=== PATIENT | female | born 1965 | race Caucasian/White ===

== ENCOUNTER 2017-04-08 18:26 | Emergency (ER) | payer MEDICAID, OTHER ==
[2017-04-08] MEDS: IBUPROFEN 600 MG TAB PO (22:49)
[2017-04-08] MEDS: ACETAMINOPHEN 325 MG TAB PO (22:49)
[2017-04-08] MEDS: ALBUTEROL 0.5% (NEB) 2.5 MG/0.5 ML AMP INH (23:05)
[2017-04-08] MEDS: IPRATROPIUM (NEB) 0.5 MG/2.5 ML AMP NEB (23:05)
== END 2017-04-09 01:06 | disposition home or self-care (01) ==
LOC: FTE 04-09 01:06
DX: J20.9 Acute bronchitis, unspecified (principal)
CPT/HCPCS: 71045; 87400; 94644; 99284-25

== ENCOUNTER 2017-04-11 06:05 | Emergency (ER) | payer MEDICAID ==
[2017-04-11] MEDS: predniSONE 20 MG TAB PO (06:58)
[2017-04-11] MEDS: ALBUTEROL 0.5% (NEB) 2.5 MG/0.5 ML AMP INH (07:28)
[2017-04-11] MEDS: IPRATROPIUM (NEB) 0.5 MG/2.5 ML AMP NEB (07:28)
[2017-04-11 08:45] LABS: ADD MAN DIFF? NO
[2017-04-11 08:51] LABS: BASOPHILS % 0.5 % (0.0-2.0); EOSINOPHILS # 0.1 10^3/ul (0.0-0.5); EOSINOPHILS % 1.4 % (0.0-7.0); HEMATOCRIT 41.5 % (37.0-47.0); HEMOGLOBIN 13.7 g/dl (12.0-16.0); LYMPHOCYTES # 2.4 10^3/ul (0.8-2.9); LYMPHOCYTES % 41.2 % (15.0-51.0); MEAN CORPUSCULAR VOLUME 87.7 fl (82.0-101.0); MEAN PLATELET VOLUME 12.1 fl (7.4-10.4); MONOCYTE # 0.4 10^3/ul (0.3-0.9); MONOCYTES % 7.1 % (0.0-11.0); NEUTROPHIL # 2.9 10^3/ul (1.6-7.5); NEUTROPHILS % 49.5 % (39.0-77.0); PLATELET COUNT 119 10^3/UL (140-415); RED BLOOD COUNT 4.73 10^6/ul (4.20-5.40); RED CELL DISTRIBUTION WIDTH 12.5 % (11.5-14.5)
[2017-04-11 08:51] LABS: WHITE BLOOD COUNT 5.9 10^3/ul (4.8-10.8)
[2017-04-11 09:07] LABS: ANION GAP 14 (8-16); BLOOD UREA NITROGEN 14 mg/dl (7-20); CALCIUM 8.8 mg/dl (8.4-10.2); CARBON DIOXIDE 30 mmol/L (21-31); CHLORIDE 100 mmol/L (97-110); GLUCOSE 292 mg/dl (70-220); POTASSIUM 3.6 mmol/L (3.5-5.1); SODIUM 140 mmol/L (135-144)
[2017-04-11 09:09] LABS: INR 0.86; PROTIME 11.8 Sec (11.9-14.9); PT RATIO 0.9
[2017-04-11 09:10] LABS: PARTIAL THROMBOPLASTIN TIME 25.3 Sec (25.0-35.0)
[2017-04-11 09:12] LABS: D-DIMER 485.45 ng/ml (<460)
[2017-04-11 09:18] LABS: B-TYPE NATRIURETIC PEPTIDE 68 PG/ML (0-125)
[2017-04-11 09:28] LABS: TROPONIN-I < 0.012 ng/ml (0.00-0.12)
[2017-04-11] MEDS: SOD CHLORIDE 0.9% 1,000 ML IV (09:56)
[2017-04-11] MEDS ORDERED: ALBUTEROL 0.5% (NEB) 2.5 MG/0.5 ML AMP INH (11:06)
[2017-04-11] MEDS: SOD CHLORIDE 0.9% 100 ML (11:07)
[2017-04-11] MEDS: IOHEXOL 100 ML (11:07)
== END 2017-04-11 12:44 | disposition home or self-care (01) ==
LOC: FTE 06:05
DX: J20.9 Acute bronchitis, unspecified (principal); J45.901 Unspecified asthma with (acute) exacerbation; E11.9 Type 2 diabetes mellitus without complications; Z79.84 Long term (current) use of oral hypoglycemic drugs
CPT/HCPCS: 71045; 71275; 80048; 83880; 84484; 85025; 85378; 85610; 85730; 93005; 94644; 99285-25

== ENCOUNTER 2017-08-20 06:23 | Emergency (ER) | payer MEDICAID ==
[2017-08-20] MEDS: DEXAMETHASONE 10 MG/ML 1 ML INJ IM (06:57)
[2017-08-20] MEDS: IPRATROPIUM (NEB) 0.5 MG/2.5 ML AMP HHN (07:18)
[2017-08-20] MEDS: ALBUTEROL 0.083% (NEB) 2.5 MG/3 ML AMP HHN (07:18)
== END 2017-08-20 08:05 | disposition home or self-care (01) ==
LOC: FTE 06:23
DX: J45.901 Unspecified asthma with (acute) exacerbation (principal); I10 Essential (primary) hypertension; E11.9 Type 2 diabetes mellitus without complications; Z79.84 Long term (current) use of oral hypoglycemic drugs
CPT/HCPCS: 94664; 96372; 99284-25

== ENCOUNTER 2017-10-08 16:09 | Emergency (ER) | payer MEDICAID ==
[2017-10-08] MEDS: DEXAMETHASONE 10 MG/ML 1 ML INJ IM (19:37)
[2017-10-08] MEDS: IPRATROPIUM (NEB) 0.5 MG/2.5 ML AMP HHN (19:42)
[2017-10-08] MEDS: ALBUTEROL 0.083% (NEB) 2.5 MG/3 ML AMP HHN (19:42)
== END 2017-10-08 20:44 | disposition home or self-care (01) ==
LOC: FTE 16:09
DX: J45.901 Unspecified asthma with (acute) exacerbation (principal); I10 Essential (primary) hypertension; E11.9 Type 2 diabetes mellitus without complications; Z79.84 Long term (current) use of oral hypoglycemic drugs
CPT/HCPCS: 71046; 93005; 94664; 96372; 99284-25

== ENCOUNTER 2017-11-11 09:02 | Emergency (ER) | payer MEDICAID ==
[2017-11-11] MEDS: CEPASTAT LOZENGE MT (10:35)
== END 2017-11-11 10:47 | disposition home or self-care (01) ==
LOC: FTE 09:02
DX: J00 Acute nasopharyngitis [common cold] (principal); I10 Essential (primary) hypertension; E11.9 Type 2 diabetes mellitus without complications; J45.909 Unspecified asthma, uncomplicated; Z79.84 Long term (current) use of oral hypoglycemic drugs
CPT/HCPCS: 99282; Z7502

== ENCOUNTER 2017-12-05 08:45 | Emergency (ER) | payer MEDICAID ==
[2017-12-05] MEDS: ALBUTEROL 0.083% (NEB) 2.5 MG/3 ML AMP NEB (09:16)
[2017-12-05] MEDS: IPRATROPIUM (NEB) 0.5 MG/2.5 ML AMP NEB (09:16)
[2017-12-05] MEDS: predniSONE 20 MG TAB PO (09:38)
== END 2017-12-05 10:14 | disposition home or self-care (01) ==
LOC: FTE 08:45
DX: J45.901 Unspecified asthma with (acute) exacerbation (principal); E11.9 Type 2 diabetes mellitus without complications; I10 Essential (primary) hypertension; Z79.84 Long term (current) use of oral hypoglycemic drugs
CPT/HCPCS: 94664; 99283-25

== ENCOUNTER 2018-02-05 10:51 | Emergency (ER) | payer MEDICAID ==
[2018-02-05] MEDS: ALBUTEROL 0.083% (NEB) 2.5 MG/3 ML AMP HHN ×2 (11:16→11:24)
[2018-02-05] MEDS: predniSONE 20 MG TAB PO (11:20)
[2018-02-05] MEDS: IPRATROPIUM (NEB) 0.5 MG/2.5 ML AMP HHN (11:24)
== END 2018-02-05 12:57 | disposition home or self-care (01) ==
LOC: FTE 10:51
DX: J45.901 Unspecified asthma with (acute) exacerbation (principal); I10 Essential (primary) hypertension; E11.9 Type 2 diabetes mellitus without complications; Z79.84 Long term (current) use of oral hypoglycemic drugs
CPT/HCPCS: 71045; 94664; 99283-25

== ENCOUNTER 2018-05-07 10:15 | Emergency (ER) | payer MEDICAID | END 2018-05-07 12:23 | disposition home or self-care (01) | LOC: FTE 10:15 | DX: J45.21 Mild intermittent asthma with (acute) exacerbation (principal); E11.9 Type 2 diabetes mellitus without complications; I10 Essential (primary) hypertension; Z79.84 Long term (current) use of oral hypoglycemic drugs | CPT/HCPCS: 99283; Z7502 ==

== ENCOUNTER 2018-06-01 04:58 | Emergency (ER) | payer MEDICAID ==
[2018-06-01] MEDS: IPRATROPIUM (NEB) 0.5 MG/2.5 ML AMP NEB (05:19)
[2018-06-01] MEDS: ALBUTEROL 0.083% (NEB) 2.5 MG/3 ML AMP NEB (05:19)
[2018-06-01] MEDS: predniSONE 20 MG TAB PO (05:37)
== END 2018-06-01 05:51 | disposition home or self-care (01) ==
LOC: FTE 04:58
DX: J45.901 Unspecified asthma with (acute) exacerbation (principal); E11.9 Type 2 diabetes mellitus without complications; I10 Essential (primary) hypertension; Z79.84 Long term (current) use of oral hypoglycemic drugs
CPT/HCPCS: 94664; 99283-25

== ENCOUNTER 2018-08-13 04:49 | Emergency (ER) | payer MEDICAID ==
[2018-08-13] MEDS: DEXAMETHASONE 10 MG/ML 1 ML INJ IM (05:14)
[2018-08-13] MEDS: IPRATROPIUM (NEB) 0.5 MG/2.5 ML AMP HHN (05:23)
[2018-08-13] MEDS: ALBUTEROL 0.083% (NEB) 2.5 MG/3 ML AMP HHN (05:24)
== END 2018-08-13 06:05 | disposition home or self-care (01) ==
LOC: FTE 04:49
DX: J45.901 Unspecified asthma with (acute) exacerbation (principal); I10 Essential (primary) hypertension; E11.9 Type 2 diabetes mellitus without complications; Z79.84 Long term (current) use of oral hypoglycemic drugs
CPT/HCPCS: 93005; 94664; 96372; 99284-25

== ENCOUNTER 2018-09-05 12:48 | Emergency (ER) | payer MEDICAID ==
[2018-09-05] MEDS ORDERED: METHYLPREDNISOLONE 125 MG INJ IV (13:14)
[2018-09-05] MEDS: ALBUTEROL 0.083% (NEB) 2.5 MG/3 ML AMP NEB (13:31)
[2018-09-05] MEDS: IPRATROPIUM (NEB) 0.5 MG/2.5 ML AMP NEB (13:31)
[2018-09-05] MEDS: predniSONE 20 MG TAB PO (13:42)
== END 2018-09-05 14:34 | disposition home or self-care (01) ==
LOC: FTE 12:48
DX: J45.901 Unspecified asthma with (acute) exacerbation (principal); J18.9 Pneumonia, unspecified organism; R06.02 Shortness of breath
CPT/HCPCS: 71045; 94664; 99283-25

== ENCOUNTER 2018-10-23 04:28 | Emergency (ER) | payer MEDICAID ==
[2018-10-23] MEDS: IPRATROPIUM (NEB) 0.5 MG/2.5 ML AMP HHN (04:50)
[2018-10-23] MEDS: ALBUTEROL 0.083% (NEB) 2.5 MG/3 ML AMP HHN (04:50)
[2018-10-23] MEDS: DEXAMETHASONE 10 MG/ML 1 ML INJ IM (04:51)
== END 2018-10-23 05:36 | disposition home or self-care (01) ==
LOC: FTE 04:28
DX: J45.901 Unspecified asthma with (acute) exacerbation (principal); E11.9 Type 2 diabetes mellitus without complications; I10 Essential (primary) hypertension; E66.01 Morbid (severe) obesity due to excess calories; Z68.43 Body mass index [BMI] 50.0-59.9, adult
CPT/HCPCS: 94664; 96372; 99284-25